=== PATIENT | male | born 1975 | race Two or more races ===

== ENCOUNTER 2021-11-19 17:57 | Inpatient (IN) | payer MEDICAID ==
[~2021-11-19] VITALS: Ht 177.8 cm; Wt 152.1 kg
[2021-11-19] MEDS ORDERED: SODIUM CHLORIDE 0.9% 1,000 ML IV ONE (19:00)
[2021-11-19] MEDS ORDERED: NITROGLYCERIN 0.4 MG SL TAB SL ONE (19:00)
[2021-11-19] MEDS ORDERED: ASPirin 325 MG TAB PO ONE (19:00)
[2021-11-19 19:06] LABS: Hemoglobin 18.3 g/dL (13.5-17.5); Lymphocytes # (auto) 1.7 10 ^3/uL (0.4-5.4); Mean Corpuscular Hgb Conc. 32.7 g/dL (32.0-36.0); Monocytes # (auto) 0.9 10 ^3/uL (0-1.3)
[2021-11-19 19:07] LABS: Basophils # (auto) 0.1 10 ^3/uL (0-0.2); Basophils % (auto) 0.5 % (0.0-2.0); Eosinophils # (auto) 0 10 ^3/uL (0-0.8); Eosinophils % (auto) 0.4 % (0.0-7.0); Hematocrit 55.8 % (41.0-53.0); Lymphocytes % (auto) 13.6 % (10.0-50.0); Mean Corpuscular Hemoglobin 29.2 pg (28.0-32.0); Mean Corpuscular Volume 89.3 fL (80.0-100.0); Monocytes % (auto) 6.7 % (0.0-12.0); Neutrophils # (auto) 10.1 10 ^3/uL (1.6-8.6); Neutrophils % (auto) 78.8 % (37.0-80.0); Nucleated Red Blood Cells % 0.2 %; Red Blood Cells 6.25 10^6/uL (4.5-5.90); Red Cell Distribution Width 13.9 % (11.8-14.3); White Blood Cell 12.8 10^3/uL (4.4-10.8)
[2021-11-19 19:22] LABS: Albumin 3.9 g/dL (3.4-5.0); Calcium 9.4 mg/dL (8.5-10.1); Potassium 4.4 mmol/L (3.5-5.1)
[2021-11-19 19:26] LABS: BUN/Creatinine Ratio 13.2; Bilirubin, Total 0.6 mg/dL (0.2-1.0)
[2021-11-19] MEDS ORDERED: HEPARIN DRIP/D5W 100UNITS/ML 250 ML IV SCH (19:45)
[2021-11-19] MEDS ORDERED: HEPARIN SODIUM (PORCINE) 5000 UNITS/ML 1ML VIAL ONE (20:54)
[2021-11-19 21:12] LABS: INR 1.06 (0.9-1.15); Partial Thromboplastin Time 28.7 sec (24.6-33.4)
[2021-11-19] MEDS: SODIUM CHLOR 0.9% PF (SALINE LOCK) 10ML VIAL/SYR IV SCH (22:02)
[2021-11-20] MEDS ORDERED: ACETAMINOPHEN 325 MG TAB PO PRN (00:30)
[2021-11-20] MEDS ORDERED: NITROGLYCERIN 0.4 MG SL TAB SL PRN (00:30)
[2021-11-20] MEDS ORDERED: DEXTROSE (50%) 50ML SYRG IV PRN (00:30)
[2021-11-20] MEDS ORDERED: MORPHINE SULFATE INJ 2 MG/ml SYRG IV PRN (00:30)
[2021-11-20] MEDS ORDERED: cefTRIAXone 1GM/50ML D5W 50 ML IV ONE (00:30)
[2021-11-20] MEDS: SODIUM CHLORIDE 0.9% 1,000 ML IV SCH ×2 (01:14→08:09)
[2021-11-20] MEDS ORDERED: hydrALAZINE HCL 20 MG/ML VL IV PRN (01:15)
[2021-11-20] MEDS: MORPHINE SULFATE INJ 2 MG/ml SYRG IV PRN ×5 (01:34→16:28)
[2021-11-20] MEDS: ONDANSETRON HCL 4 MG/2 ML VIAL IV PRN ×3 (01:35→16:40)
[2021-11-20 02:53] VITALS: BP 112/60
[2021-11-20 03:24] LABS: Amphetamine Screen, Urine NEGATIVE (NEGATIVE); Barbiturate Scree,Urine NEGATIVE (NEGATIVE); Benzodiazephine Screen, Urine NEGATIVE (NEGATIVE); Cannabinoid Screen, Urine POSITIVE (NEGATIVE); Cocaine Screen, Urine NEGATIVE (NEGATIVE); Opiate Scree,Urine NEGATIVE (NEGATIVE); Phencyclidine Screen, Urine NEGATIVE (NEGATIVE)
[2021-11-20 04:14] LABS: Basophils # (auto) 0.1 10 ^3/uL (0-0.2); Basophils % (auto) 0.8 % (0.0-2.0); Eosinophils # (auto) 0.1 10 ^3/uL (0-0.8); Eosinophils % (auto) 0.9 % (0.0-7.0); Hematocrit 52.3 % (41.0-53.0); Hemoglobin 17.4 g/dL (13.5-17.5); Lymphocytes # (auto) 2.3 10 ^3/uL (0.4-5.4); Lymphocytes % (auto) 21.7 % (10.0-50.0); Mean Corpuscular Hemoglobin 29.6 pg (28.0-32.0); Mean Corpuscular Hgb Conc. 33.2 g/dL (32.0-36.0); Mean Corpuscular Volume 89.4 fL (80.0-100.0); Monocytes # (auto) 0.9 10 ^3/uL (0-1.3); Neutrophils # (auto) 7.4 10 ^3/uL (1.6-8.6); Neutrophils % (auto) 68.6 % (37.0-80.0); Red Blood Cells 5.86 10^6/uL (4.5-5.90); White Blood Cell 10.8 10^3/uL (4.4-10.8)
[2021-11-20 04:34] LABS: INR 1.02 (0.9-1.15); Partial Thromboplastin Time 28.9 sec (24.6-33.4)
[2021-11-20 04:39] LABS: Albumin 3.5 g/dL (3.4-5.0); Calcium 8.6 mg/dL (8.5-10.1)
[2021-11-20 04:50] LABS: Bilirubin, Total 0.6 mg/dL (0.2-1.0); Total Protein 6.9 g/dL (6.4-8.2)
[2021-11-20 04:52] VITALS: BP 112/60
[2021-11-20] MEDS ORDERED: BACL10TA PO (05:03)
[2021-11-20] MEDS ORDERED: LISI20TA28 PO (05:03)
[2021-11-20] MEDS ORDERED: HEPARIN SODIUM (PORCINE) 5000 UNITS/ML 1ML VIAL IV ONE ×3 (05:30→19:30)
[2021-11-20] MEDS: SODIUM CHLOR 0.9% PF (SALINE LOCK) 10ML VIAL/SYR IV SCH ×3 (05:34→21:38)
[2021-11-20] MEDS: InsuLIN REG 1unit/0.01ml Soln (100units/ml) SC SCH ×3 (06:12→11:30)
[2021-11-20] MEDS: ACCU-CHEK COMFORT CURVE STRIP VI SCH ×2 (06:27→11:37)
[2021-11-20] MEDS: ASPirin 81 mg TAB PO SCH (08:56)
[2021-11-20] MEDS: FAMOTIDINE (10MG/ML) 2ML VL IV SCH ×2 (08:56→21:37)
[2021-11-20] MEDS: METOPROLOL TARTRATE 25 MG TAB PO SCH ×2 (08:57→21:42)
[2021-11-20 09:00] VITALS: BP 127/87
[2021-11-20 12:11] LABS: INR 1.03 (0.9-1.15); Partial Thromboplastin Time 29.3 sec (24.6-33.4)
[2021-11-20] MEDS: HEPARIN DRIP/D5W 100UNITS/ML 250 ML IV SCH ×3 (12:38→19:46)
[2021-11-20 13:00] VITALS: BP 119/74
[2021-11-20 17:00] VITALS: BP 129/78
[2021-11-20 19:15] LABS: INR 1.09 (0.9-1.15); Partial Thromboplastin Time 30.2 sec (24.6-33.4)
[2021-11-20] MEDS ORDERED: cefTRIAXone 1GM/50ML D5W 50 ML IV SCH (21:00)
[2021-11-20] MEDS: DOCUSATE SOD 100 MG CAP PO PRN (21:33)
[2021-11-20] MEDS ORDERED: InsuLIN REG 1unit/0.01ml Soln (100units/ml) SC SCH (22:00)
[2021-11-20 22:06] VITALS: BP 138/85
[2021-11-20] MEDS: HYDROcodone-ACET 5/325MG TAB PO PRN (23:15)
[2021-11-21 02:11] LABS: INR 1.08 (0.9-1.15); Partial Thromboplastin Time 32.5 sec (24.6-33.4)
[2021-11-21] MEDS ORDERED: HEPARIN SODIUM (PORCINE) 5000 UNITS/ML 1ML VIAL IV ONE ×2 (02:30→16:54)
[2021-11-21] MEDS: HEPARIN DRIP/D5W 100UNITS/ML 250 ML IV SCH ×3 (02:39→17:42)
[2021-11-21 04:52] VITALS: BP 134/77
[2021-11-21] MEDS: SODIUM CHLOR 0.9% PF (SALINE LOCK) 10ML VIAL/SYR IV SCH ×3 (05:38→21:25)
[2021-11-21 06:08] LABS: Basophils # (auto) 0.1 10 ^3/uL (0-0.2); Basophils % (auto) 0.7 % (0.0-2.0); Eosinophils # (auto) 0.1 10 ^3/uL (0-0.8); Eosinophils % (auto) 1.1 % (0.0-7.0); Hematocrit 48.6 % (41.0-53.0); Hemoglobin 16.4 g/dL (13.5-17.5); Lymphocytes # (auto) 2.8 10 ^3/uL (0.4-5.4); Mean Corpuscular Hgb Conc. 33.7 g/dL (32.0-36.0); Monocytes # (auto) 0.9 10 ^3/uL (0-1.3); Monocytes % (auto) 8.5 % (0.0-12.0); Neutrophils # (auto) 7.1 10 ^3/uL (1.6-8.6); Neutrophils % (auto) 64.7 % (37.0-80.0); Nucleated Red Blood Cells % 0.1 %; Red Blood Cells 5.46 10^6/uL (4.5-5.90); Red Cell Distribution Width 13.8 % (11.8-14.3)
[2021-11-21 06:38] LABS: Potassium 3.8 mmol/L (3.5-5.1)
[2021-11-21 06:58] LABS: Albumin 3.2 g/dL (3.4-5.0); BUN/Creatinine Ratio 12.7; Calcium 8.3 mg/dL (8.5-10.1)
[2021-11-21 09:00] VITALS: BP 133/84
[2021-11-21] MEDS: ASPirin 81 mg TAB PO SCH (09:03)
[2021-11-21] MEDS: METOPROLOL TARTRATE 25 MG TAB PO SCH ×2 (09:03→21:17)
[2021-11-21] MEDS: FAMOTIDINE (10MG/ML) 2ML VL IV SCH ×2 (09:03→21:18)
[2021-11-21] MEDS: DOCUSATE SOD 100 MG CAP PO PRN ×2 (09:34→21:17)
[2021-11-21 09:35] LABS: INR 1.08 (0.9-1.15); Partial Thromboplastin Time 37.6 sec (24.6-33.4)
[2021-11-21 13:00] VITALS: BP 149/91
[2021-11-21] MEDS ORDERED: POLYETHYLENE GLYCOL 17 GM PWDR PO ONE (13:15)
[2021-11-21 16:34] LABS: INR 1.03 (0.9-1.15); Partial Thromboplastin Time 35.9 sec (24.6-33.4)
[2021-11-21 17:00] VITALS: BP 149/95
[2021-11-21] MEDS ORDERED: guaiFENesin-DM 100/10mg/5ml SYR PO ONE (18:00)
[2021-11-21] MEDS: POLYETHYLENE GLYCOL 17 GM PWDR PO PRN (21:17)
[2021-11-21] MEDS: HYDROcodone-ACET 5/325MG TAB PO PRN (21:30)
[2021-11-21 22:00] VITALS: BP_SYST 143; BP_SYST 148; BP_DIAS 91; BP_DIAS 96
[2021-11-21 23:39] LABS: INR 1.08 (0.9-1.15); Partial Thromboplastin Time 37.2 sec (24.6-33.4)
[2021-11-22] VITALS (7 sets, daily range): BP systolic 137–149; BP diastolic 78–109
[2021-11-22] MEDS: SODIUM CHLOR 0.9% PF (SALINE LOCK) 10ML VIAL/SYR IV SCH ×3 (05:28→22:15)
[2021-11-22 05:46] LABS: Basophils # (auto) 0.1 10 ^3/uL (0-0.2); Basophils % (auto) 0.7 % (0.0-2.0); Eosinophils # (auto) 0.2 10 ^3/uL (0-0.8); Eosinophils % (auto) 2.1 % (0.0-7.0); Hematocrit 50.1 % (41.0-53.0); Hemoglobin 16.9 g/dL (13.5-17.5); Lymphocytes # (auto) 2.6 10 ^3/uL (0.4-5.4); Lymphocytes % (auto) 23.7 % (10.0-50.0); Mean Corpuscular Hemoglobin 30.2 pg (28.0-32.0); Mean Corpuscular Hgb Conc. 33.7 g/dL (32.0-36.0); Mean Corpuscular Volume 89.4 fL (80.0-100.0); Monocytes % (auto) 9.5 % (0.0-12.0); Nucleated Red Blood Cells % 0.1 %; Red Blood Cells 5.61 10^6/uL (4.5-5.90); Red Cell Distribution Width 13.9 % (11.8-14.3)
[2021-11-22 05:58] LABS: INR 1.07 (0.9-1.15); Partial Thromboplastin Time 40.2 sec (24.6-33.4)
[2021-11-22 06:03] LABS: Calcium 8.6 mg/dL (8.5-10.1); Potassium 3.9 mmol/L (3.5-5.1)
[2021-11-22 06:05] LABS: BUN/Creatinine Ratio 11.6
[2021-11-22] MEDS: ASPirin 81 mg TAB PO SCH (08:45)
[2021-11-22] MEDS: FAMOTIDINE (10MG/ML) 2ML VL IV SCH ×2 (08:45→22:14)
[2021-11-22] MEDS: METOPROLOL TARTRATE 25 MG TAB PO SCH ×2 (08:45→22:14)
[2021-11-22] MEDS: guaiFENesin-DM 100/10mg/5ml SYR PO PRN ×2 (08:46→20:29)
[2021-11-22] MEDS: DOCUSATE SOD 100 MG CAP PO PRN (10:16)
[2021-11-22] MEDS: POLYETHYLENE GLYCOL 17 GM PWDR PO PRN (10:16)
[2021-11-22 14:10] LABS: INR 1.08 (0.9-1.15); Partial Thromboplastin Time 38.9 sec (24.6-33.4)
[2021-11-22 18:30] LABS: INR 1.07 (0.9-1.15); Partial Thromboplastin Time 39.3 sec (24.6-33.4)
[2021-11-22] MEDS: HEPARIN DRIP/D5W 100UNITS/ML 250 ML IV SCH (20:36)
[2021-11-22] MEDS: MORPHINE SULFATE INJ 2 MG/ml SYRG IV PRN (23:08)
[2021-11-23 02:07] LABS: Basophils # (auto) 0.1 10 ^3/uL (0-0.2); Basophils % (auto) 1.3 % (0.0-2.0); Eosinophils # (auto) 0.1 10 ^3/uL (0-0.8); Eosinophils % (auto) 1.4 % (0.0-7.0); Hematocrit 47.8 % (41.0-53.0); Hemoglobin 16.6 g/dL (13.5-17.5); Lymphocytes # (auto) 1.8 10 ^3/uL (0.4-5.4); Lymphocytes % (auto) 17.3 % (10.0-50.0); Mean Corpuscular Hemoglobin 30.9 pg (28.0-32.0); Mean Corpuscular Hgb Conc. 34.6 g/dL (32.0-36.0); Mean Corpuscular Volume 89.1 fL (80.0-100.0); Monocytes # (auto) 0.9 10 ^3/uL (0-1.3); Monocytes % (auto) 8.6 % (0.0-12.0); Neutrophils # (auto) 7.5 10 ^3/uL (1.6-8.6); Neutrophils % (auto) 71.4 % (37.0-80.0); Nucleated Red Blood Cells % 0.5 %; Red Blood Cells 5.36 10^6/uL (4.5-5.90); Red Cell Distribution Width 13.8 % (11.8-14.3); White Blood Cell 10.6 10^3/uL (4.4-10.8)
[2021-11-23 02:24] LABS: INR 1.08 (0.9-1.15); Partial Thromboplastin Time 29.1 sec (24.6-33.4)
[2021-11-23 02:25] LABS: BUN/Creatinine Ratio 11.1; Calcium 8.6 mg/dL (8.5-10.1); Potassium 3.9 mmol/L (3.5-5.1)
[2021-11-23 05:00] VITALS: BP 136/98
[2021-11-23 05:14] LABS: Urine Bacteria NONE SEEN /hpf (None Seen); Urine Blood Negative /uL (Negative); Urine Mucus FEW (None Seen); Urine Specific Gravity 1.023 (1.001-1.035); Urine WBC 1 /hpf (0 - 3)
[2021-11-23] MEDS: SODIUM CHLOR 0.9% PF (SALINE LOCK) 10ML VIAL/SYR IV SCH ×3 (05:19→23:55)
[2021-11-23] MEDS: ASPirin 81 mg TAB PO SCH (08:57)
[2021-11-23] MEDS: METOPROLOL TARTRATE 25 MG TAB PO SCH ×2 (08:57→21:52)
[2021-11-23] MEDS: FAMOTIDINE (10MG/ML) 2ML VL IV SCH ×2 (08:57→21:49)
[2021-11-23 09:00] VITALS: BP 145/92
[2021-11-23 13:00] VITALS: BP 145/87
[2021-11-23] MEDS: guaiFENesin-DM 100/10mg/5ml SYR PO PRN (16:03)
[2021-11-23 17:00] VITALS: BP 149/87
[2021-11-23] MEDS ORDERED: HEPARIN IN NS 1000Units/500mL 1,500 ML ONE (17:41)
[2021-11-23] MEDS ORDERED: LIDOCAINE 2%HCL (LOCAL ANESTH.) INJ 10ml MDV ONE (17:41)
[2021-11-23] MEDS ORDERED: IOHEXOL 350 MG/ML 100ML IJ ONE ×2 (17:41→18:30)
[2021-11-23] MEDS ORDERED: ANGIOMAX 250 MG VIAL IV ONE (17:53)
[2021-11-23] MEDS ORDERED: fentaNYL CITRATE 100 MCG/2 ML VL ONE (17:53)
[2021-11-23] MEDS ORDERED: SODIUM CHL 0.9% 50 ML ONE (17:54)
[2021-11-23] MEDS ORDERED: MIDAZOLAM HCL 2MG/2ML 2ml VIAL (1mg/ml) ONE (17:54)
[2021-11-23] MEDS ORDERED: DEXTROSE (50%) 50ML SYRG IV PRN (18:45)
[2021-11-23] MEDS ORDERED: TICAGRELOR 90 MG TAB ONE (18:51)
[2021-11-23] MEDS: ONDANSETRON HCL 4 MG/2 ML VIAL IV PRN (21:49)
[2021-11-23] MEDS: MORPHINE SULFATE INJ 2 MG/ml SYRG IV PRN (21:53)
[2021-11-23 22:00] VITALS: BP 169/107
[2021-11-23] MEDS: ACCU-CHEK COMFORT CURVE STRIP VI SCH (22:00)
[2021-11-23] MEDS ORDERED: DexAMETHasone SOD PHOS 10MG/1ML VIAL INJ IV ONE (23:15)
[2021-11-23] MEDS ORDERED: cefTRIAXone 1GM/50ML D5W 50 ML IV ONE (23:15)
[2021-11-23] MEDS ORDERED: AZITHROMYCIN 500MG/ 250ML 250 ML IV ONE (23:15)
[2021-11-23] MEDS ORDERED: ALPRAZolam 0.25 MG TAB PO PRN (23:45)
[2021-11-23] MEDS: InsuLIN REG 1unit/0.01ml Soln (100units/ml) SC SCH (23:55)
[2021-11-24] MEDS: guaiFENesin-DM 100/10mg/5ml SYR PO PRN ×2 (00:16→16:32)
[2021-11-24 00:48] VITALS: BP 158/101
[2021-11-24] MEDS: ALBUTEROL SULF 2.5 MG/0.5ML(0.5%) NEB SOLN NEB PRN ×3 (01:58→15:21)
[2021-11-24] MEDS: MORPHINE SULFATE INJ 2 MG/ml SYRG IV PRN ×2 (03:58→10:31)
[2021-11-24] MEDS: ONDANSETRON HCL 4 MG/2 ML VIAL IV PRN ×2 (04:11→10:30)
[2021-11-24 05:00] VITALS: BP 139/96
[2021-11-24 05:44] LABS: Basophils # (auto) 0 10 ^3/uL (0-0.2); Basophils % (auto) 0.5 % (0.0-2.0); Eosinophils # (auto) 0 10 ^3/uL (0-0.8); Hematocrit 49.6 % (41.0-53.0); Hemoglobin 16.7 g/dL (13.5-17.5); Lymphocytes # (auto) 0.4 10 ^3/uL (0.4-5.4); Lymphocytes % (auto) 5.6 % (10.0-50.0); Mean Corpuscular Hgb Conc. 33.7 g/dL (32.0-36.0); Monocytes # (auto) 0.6 10 ^3/uL (0-1.3); Monocytes % (auto) 7.3 % (0.0-12.0); Neutrophils # (auto) 6.9 10 ^3/uL (1.6-8.6); Neutrophils % (auto) 86.6 % (37.0-80.0); Nucleated Red Blood Cells % 0.1 %; Red Blood Cells 5.57 10^6/uL (4.5-5.90); Red Cell Distribution Width 13.8 % (11.8-14.3)
[2021-11-24 06:03] LABS: BUN/Creatinine Ratio 8.8; Calcium 8.3 mg/dL (8.5-10.1); Potassium 4.5 mmol/L (3.5-5.1)
[2021-11-24] MEDS: ACCU-CHEK COMFORT CURVE STRIP VI SCH (06:53)
[2021-11-24] MEDS: InsuLIN REG 1unit/0.01ml Soln (100units/ml) SC SCH (06:55)
[2021-11-24] MEDS: SODIUM CHLOR 0.9% PF (SALINE LOCK) 10ML VIAL/SYR IV SCH ×2 (06:56→14:00)
[2021-11-24] MEDS: TICAGRELOR 90 MG TAB PO SCH ×2 (06:56→16:32)
[2021-11-24 08:56] VITALS: BP 140/77
[2021-11-24] MEDS: METOPROLOL TARTRATE 25 MG TAB PO SCH (10:30)
[2021-11-24] MEDS: ASPirin 81 mg TAB PO SCH (10:30)
[2021-11-24] MEDS: FAMOTIDINE (10MG/ML) 2ML VL IV SCH (10:30)
[2021-11-24] MEDS ORDERED: DAPA1TAB4 PO (11:07)
[2021-11-24] MEDS ORDERED: TICA90TA PO (11:07)
[2021-11-24] MEDS ORDERED: ALPR0.255 PO (11:07)
[2021-11-24] MEDS ORDERED: ASPI-325 PO (11:07)
[2021-11-24] MEDS ORDERED: MET25T PO (11:07)
[2021-11-24] MEDS ORDERED: AZIT500T66 PO (11:08)
[2021-11-24 12:20] VITALS: BP 142/72
[2021-11-24 13:00] VITALS: BP 100/60
[2021-11-24] MEDS: HYDROcodone-ACET 5/325MG TAB PO PRN (15:01)
[2021-11-24 17:20] VITALS: BP 130/77
[2021-11-24] MEDS ORDERED: cefTRIAXone 1GM/50ML D5W 50 ML IV SCH (21:00)
[2021-11-24] MEDS ORDERED: DexAMETHasone SOD PHOS 10MG/1ML VIAL INJ IV SCH (22:00)
[2021-11-24] MEDS ORDERED: AZITHROMYCIN 500MG/ 250ML 250 ML IV SCH (22:00)
== END 2021-11-24 17:55 | disposition home or self-care (01) | DRG 174 ==
LOC: ER 17:57 → TELE-WESTW 11-20 00:17
PROVIDERS: ADMIT Nurse Practitioner Family; ATTEND Internal Medicine Pulmonary Disease
PROC: 027135Z Dilation of Coronary Artery, Two Arteries with Two Drug-eluting Intraluminal Devices, Percutaneous Approach (ICD-10-PCS; principal; 2021-11-23)
PROC: 02703ZZ Dilation of Coronary Artery, One Artery, Percutaneous Approach (ICD-10-PCS; 2021-11-23)
PROC: 4A023N7 Measurement of Cardiac Sampling and Pressure, Left Heart, Percutaneous Approach (ICD-10-PCS; 2021-11-23)
PROC: B2111ZZ Fluoroscopy of Multiple Coronary Arteries using Low Osmolar Contrast (ICD-10-PCS; 2021-11-23)
PROC: 5A09357 Assistance with Respiratory Ventilation, Less than 24 Consecutive Hours, Continuous Positive Airway Pressure (ICD-10-PCS; 2021-11-24)
DX: I21.4 Non-ST elevation (NSTEMI) myocardial infarction (principal); J12.82 Pneumonia due to coronavirus disease 2019; E87.1 Hypo-osmolality and hyponatremia; U07.1 COVID-19; G47.30 Sleep apnea, unspecified; I10 Essential (primary) hypertension; E11.65 Type 2 diabetes mellitus with hyperglycemia; E66.01 Morbid (severe) obesity due to excess calories; Z68.42 Body mass index [BMI] 45.0-49.9, adult; Z91.19 Patient's noncompliance with other medical treatment and regimen
CPT/HCPCS: 36415; 71045; 71046; 80048; 80053; 80307; 81001; 82962; 83036; 83735; 83880; 84484; 85025; 85379; 85610; 85730; 86850; 86900; 86901; 93005; 93306; 94640; 94660; 96361; 96365; 96367; 99152; 99153; 99291; C1874; C1887; G0378; J0696; J1100; J1815; J2001; J2250; J2405; J3490

== ENCOUNTER 2021-11-26 04:38 | Inpatient (IN) | payer MEDICAID ==
[~2021-11-26] VITALS: Ht 177.8 cm; Wt 175.0 kg
[~2021-11-26 04:38] MED LIST: ALPR0.255 PO; ASPI-325 PO; AZIT500T66 PO; BACL10TA PO; DAPA1TAB4 PO; LISI20TA28 PO; MET25T PO; TICA90TA PO
[2021-11-26] MEDS ORDERED: ONDANSETRON HCL 4 MG/2 ML VIAL IV ONE (05:45)
[2021-11-26] MEDS ORDERED: MORPHINE SULFATE INJ 2 MG/ml SYRG IV ONE (06:30)
[2021-11-26] MEDS ORDERED: cefTRIAXone 1GM/50ML D5W 50 ML IV ONE (06:45)
[2021-11-26] MEDS ORDERED: methylPREDNISolone SOD SUCC 125 MG/2 ML VL IV ONE (06:45)
[2021-11-26] MEDS ORDERED: AZITHROMYCIN 500MG/ 250ML 250 ML IV ONE (06:45)
[2021-11-26 07:14] LABS: Basophils # (auto) 0 10 ^3/uL (0-0.2); Basophils % (auto) 0.4 % (0.0-2.0); Eosinophils # (auto) 0 10 ^3/uL (0-0.8); Eosinophils % (auto) 0.5 % (0.0-7.0); Hematocrit 49.3 % (41.0-53.0); Hemoglobin 16.5 g/dL (13.5-17.5); Lymphocytes # (auto) 0.8 10 ^3/uL (0.4-5.4); Lymphocytes % (auto) 11.1 % (10.0-50.0); Mean Corpuscular Hemoglobin 29.4 pg (28.0-32.0); Mean Corpuscular Hgb Conc. 33.5 g/dL (32.0-36.0); Mean Corpuscular Volume 87.8 fL (80.0-100.0); Monocytes % (auto) 12.9 % (0.0-12.0); Neutrophils # (auto) 5.6 10 ^3/uL (1.6-8.6); Neutrophils % (auto) 75.1 % (37.0-80.0); Nucleated Red Blood Cells % 0.2 %; Red Blood Cells 5.62 10^6/uL (4.5-5.90); Red Cell Distribution Width 13.7 % (11.8-14.3); White Blood Cell 7.4 10^3/uL (4.4-10.8)
[2021-11-26 07:29] LABS: INR 1.08 (0.9-1.15); Partial Thromboplastin Time 32.1 sec (24.6-33.4)
[2021-11-26 07:37] LABS: Albumin 3.5 g/dL (3.4-5.0); BUN/Creatinine Ratio 12.7; Potassium 3.9 mmol/L (3.5-5.1)
[2021-11-26 07:40] LABS: Bilirubin, Total 0.9 mg/dL (0.2-1.0); Total Protein 7.6 g/dL (6.4-8.2)
[2021-11-26] MEDS ORDERED: IOHEXOL 350 MG/ML 100ML IJ ONE (09:06)
[2021-11-26 09:26] LABS: Urine Bacteria NONE SEEN /hpf (None Seen); Urine Blood TRACE /uL (Negative); Urine Specific Gravity 1.028 (1.001-1.035); Urine WBC 1 /hpf (0 - 3)
[2021-11-26] MEDS ORDERED: NITROGLYCERIN 0.4 MG SL TAB SL PRN (10:30)
[2021-11-26] MEDS ORDERED: DEXTROSE (50%) 50ML SYRG IV PRN (10:45)
[2021-11-26] MEDS: TICAGRELOR 90 MG TAB PO SCH (11:00)
[2021-11-26] MEDS ORDERED: hydrALAZINE HCL 20 MG/ML VL IV PRN (11:00)
[2021-11-26] MEDS: SODIUM CHLORIDE 0.9% 1,000 ML IV SCH (11:00)
[2021-11-26] MEDS: ACCU-CHEK COMFORT CURVE STRIP VI SCH ×2 (11:30→17:00)
[2021-11-26] MEDS: InsuLIN REG 1unit/0.01ml Soln (100units/ml) SC SCH ×2 (11:30→17:00)
[2021-11-26 11:58] LABS: CRP High Sensitivity 5.98 mg/dL (< 0.3)
[2021-11-26 12:04] LABS: Thyroid Stimulating Hormone 3.19 uIU/mL (0.358-3.74)
[2021-11-26 12:09] VITALS: BP 113/62
[2021-11-26] MEDS ORDERED: ONDANSETRON ODT 4 MG TAB PO PRN (13:40)
[2021-11-26] MEDS ORDERED: ONDANSETRON HCL 4 MG/2 ML VIAL IV PRN (13:55)
[2021-11-26 14:31] VITALS: BP 125/83
[2021-11-26 15:33] VITALS: BP 125/83
[2021-11-26] MEDS: ACETAMINOPHEN 500 MG TAB PO PRN (15:38)
[2021-11-26 19:51] VITALS: BP_SYST 125; BP_SYST 128; BP_DIAS 78; BP_DIAS 83
[2021-11-26 21:25] VITALS: BP 125/83
[2021-11-26 22:00] VITALS: BP 128/78
[2021-11-26] MEDS ORDERED: ENOXAPARIN SOD 40 MG/0.4 ML SYRINGE SC SCH (22:00)
[2021-11-26] MEDS: BUDESONIDE (INHALATION) 180 MCG IH IN SCH (22:56)
[2021-11-26] MEDS: MORPHINE SULFATE INJ 2 MG/ml SYRG IV PRN (23:59)
[2021-11-27] MEDS: SODIUM CHLORIDE 0.9% 1,000 ML IV SCH ×2 (00:20→13:40)
[2021-11-27] MEDS: InsuLIN REG 1unit/0.01ml Soln (100units/ml) SC SCH ×5 (00:58→22:00)
[2021-11-27] MEDS: TICAGRELOR 90 MG TAB PO SCH ×3 (00:58→22:20)
[2021-11-27] MEDS: ACCU-CHEK COMFORT CURVE STRIP VI SCH ×6 (00:58→22:00)
[2021-11-27 05:00] VITALS: BP 129/75
[2021-11-27 05:52] LABS: Basophils # (auto) 0 10 ^3/uL (0-0.2); Basophils % (auto) 0.4 % (0.0-2.0); Eosinophils # (auto) 0 10 ^3/uL (0-0.8); Eosinophils % (auto) 0.4 % (0.0-7.0); Hemoglobin 16.5 g/dL (13.5-17.5); Lymphocytes # (auto) 1.5 10 ^3/uL (0.4-5.4); Lymphocytes % (auto) 19.9 % (10.0-50.0); Mean Corpuscular Hemoglobin 30.7 pg (28.0-32.0); Mean Corpuscular Hgb Conc. 34.5 g/dL (32.0-36.0); Mean Corpuscular Volume 89.1 fL (80.0-100.0); Monocytes % (auto) 12.5 % (0.0-12.0); Neutrophils # (auto) 5.2 10 ^3/uL (1.6-8.6); Neutrophils % (auto) 66.8 % (37.0-80.0); Nucleated Red Blood Cells % 0.1 %; Red Blood Cells 5.39 10^6/uL (4.5-5.90); Red Cell Distribution Width 13.8 % (11.8-14.3); White Blood Cell 7.7 10^3/uL (4.4-10.8)
[2021-11-27 06:09] LABS: Calcium 8.8 mg/dL (8.5-10.1); Potassium 4.2 mmol/L (3.5-5.1)
[2021-11-27 06:12] LABS: Albumin 3.1 g/dL (3.4-5.0)
[2021-11-27 06:15] LABS: Bilirubin, Total 0.7 mg/dL (0.2-1.0); Total Protein 7.1 g/dL (6.4-8.2)
[2021-11-27] MEDS: BUDESONIDE (INHALATION) 180 MCG IH IN SCH ×2 (08:52→19:40)
[2021-11-27 09:00] VITALS: BP 104/65
[2021-11-27] MEDS ORDERED: ALBUTEROL SULF 2.5 MG/0.5ML(0.5%) NEB SOLN NEB PRN (09:00)
[2021-11-27] MEDS: MORPHINE SULFATE INJ 2 MG/ml SYRG IV PRN (09:05)
[2021-11-27] MEDS: ALBUTEROL SULF HFA 90MCG INH 200DOSE IN PRN ×2 (09:08→19:40)
[2021-11-27] MEDS: ZINC SULFATE 220mg CAP or TAB PO SCH (09:51)
[2021-11-27] MEDS: DexAMETHasone SOD PHOS 10MG/1ML VIAL INJ IV SCH (09:51)
[2021-11-27] MEDS: ASCORBIC ACID 1,000 MG TAB PO SCH (09:52)
[2021-11-27] MEDS: CHOLECALCIFEROL (VITD3) 2,000 UNIT CAP/TAB PO SCH (09:53)
[2021-11-27] MEDS: AZITHROMYCIN 500MG/ 250ML 250 ML IV SCH (09:53)
[2021-11-27] MEDS ORDERED: REMDESIVIR PER PHARMACY 0 ML IV SCH (12:45)
[2021-11-27 13:00] VITALS: BP 115/61
[2021-11-27 17:00] VITALS: BP 113/87
[2021-11-27 22:00] VITALS: BP 131/85
[2021-11-27] MEDS: guaiFENesin-DM 100/10mg/5ml SYR PO PRN (22:21)
[2021-11-28] MEDS: SODIUM CHLORIDE 0.9% 1,000 ML IV SCH ×3 (03:00→16:36)
[2021-11-28 05:15] VITALS: BP 135/73
[2021-11-28 05:57] LABS: Albumin 3.4 g/dL (3.4-5.0); BUN/Creatinine Ratio 18.2; Calcium 8.6 mg/dL (8.5-10.1)
[2021-11-28 06:00] LABS: Bilirubin, Total 0.7 mg/dL (0.2-1.0); Total Protein 7.4 g/dL (6.4-8.2)
[2021-11-28 06:16] LABS: INR 1.06 (0.9-1.15); Partial Thromboplastin Time 30.7 sec (24.6-33.4)
[2021-11-28] MEDS: guaiFENesin-DM 100/10mg/5ml SYR PO PRN (06:29)
[2021-11-28] MEDS: ACCU-CHEK COMFORT CURVE STRIP VI SCH ×4 (07:00→21:56)
[2021-11-28] MEDS: InsuLIN REG 1unit/0.01ml Soln (100units/ml) SC SCH ×4 (07:00→21:56)
[2021-11-28] MEDS: AZITHROMYCIN 500MG/ 250ML 250 ML IV SCH (08:56)
[2021-11-28] MEDS: ENOXAPARIN SOD 40 MG/0.4 ML SYRINGE SC SCH (08:56)
[2021-11-28] MEDS: DexAMETHasone SOD PHOS 10MG/1ML VIAL INJ IV SCH (08:56)
[2021-11-28] MEDS: CHOLECALCIFEROL (VITD3) 2,000 UNIT CAP/TAB PO SCH (08:57)
[2021-11-28] MEDS: LISINOPRIL 20 MG TAB PO SCH (08:59)
[2021-11-28 09:00] VITALS: BP 113/65
[2021-11-28] MEDS: ASCORBIC ACID 1,000 MG TAB PO SCH (09:00)
[2021-11-28] MEDS: ASPirin-EC 81 mg tab PO SCH (09:01)
[2021-11-28] MEDS: ZINC SULFATE 220mg CAP or TAB PO SCH (09:01)
[2021-11-28] MEDS: BUDESONIDE (INHALATION) 180 MCG IH IN SCH ×2 (10:16→19:16)
[2021-11-28] MEDS: ALBUTEROL SULF HFA 90MCG INH 200DOSE IN PRN ×2 (10:16→19:16)
[2021-11-28] MEDS: TICAGRELOR 90 MG TAB PO SCH ×2 (12:35→21:57)
[2021-11-28 22:00] VITALS: BP_SYST 113; BP_SYST 126; BP_DIAS 65; BP_DIAS 70
[2021-11-29 00:40] VITALS: BP 126/70
[2021-11-29 05:00] VITALS: BP 111/73
[2021-11-29] MEDS: SODIUM CHLORIDE 0.9% 1,000 ML IV SCH (05:40)
[2021-11-29] MEDS: InsuLIN REG 1unit/0.01ml Soln (100units/ml) SC SCH ×2 (07:00→11:30)
[2021-11-29] MEDS: ACCU-CHEK COMFORT CURVE STRIP VI SCH ×2 (07:00→11:30)
[2021-11-29] MEDS: ENOXAPARIN SOD 40 MG/0.4 ML SYRINGE SC SCH (08:03)
[2021-11-29] MEDS: DexAMETHasone SOD PHOS 10MG/1ML VIAL INJ IV SCH (08:03)
[2021-11-29] MEDS: AZITHROMYCIN 500MG/ 250ML 250 ML IV SCH (08:03)
[2021-11-29] MEDS: ASPirin-EC 81 mg tab PO SCH (08:04)
[2021-11-29] MEDS: CHOLECALCIFEROL (VITD3) 2,000 UNIT CAP/TAB PO SCH (08:04)
[2021-11-29] MEDS: LISINOPRIL 20 MG TAB PO SCH (08:05)
[2021-11-29] MEDS: ZINC SULFATE 220mg CAP or TAB PO SCH (08:06)
[2021-11-29] MEDS: ASCORBIC ACID 1,000 MG TAB PO SCH (08:06)
[2021-11-29 09:00] VITALS: BP 115/63
[2021-11-29] MEDS: TICAGRELOR 90 MG TAB PO SCH (11:07)
[2021-11-29] MEDS: ACETAMINOPHEN 500 MG TAB PO PRN (11:07)
[2021-11-29] MEDS: BUDESONIDE (INHALATION) 180 MCG IH IN SCH (11:08)
[2021-11-29] MEDS ORDERED: FAMO-161 PO (12:04)
[2021-11-29] MEDS ORDERED: DEXA6TAB6 PO (12:04)
[2021-11-29 12:45] VITALS: BP 100/63
[2021-11-29 14:33] VITALS: BP 115/63
== END 2021-11-29 14:15 | disposition home or self-care (01) | DRG 137 ==
LOC: ER 04:38 → TELE 10:37 → TELE-EAST 12:15
PROVIDERS: ADMIT Registered Nurse; ATTEND Hospitalist
PROC: 5A09357 Assistance with Respiratory Ventilation, Less than 24 Consecutive Hours, Continuous Positive Airway Pressure (ICD-10-PCS; principal; 2021-11-26)
PROC: 5A09357 Assistance with Respiratory Ventilation, Less than 24 Consecutive Hours, Continuous Positive Airway Pressure (ICD-10-PCS; 2021-11-28)
DX: U07.1 COVID-19 (principal); J96.01 Acute respiratory failure with hypoxia; J12.82 Pneumonia due to coronavirus disease 2019; I21.4 Non-ST elevation (NSTEMI) myocardial infarction; E11.65 Type 2 diabetes mellitus with hyperglycemia; J98.11 Atelectasis; E66.01 Morbid (severe) obesity due to excess calories; R80.9 Proteinuria, unspecified; R31.9 Hematuria, unspecified; R82.4 Acetonuria; I10 Essential (primary) hypertension; R79.89 Other specified abnormal findings of blood chemistry; R81 Glycosuria; I25.10 Atherosclerotic heart disease of native coronary artery without angina pectoris; Z95.5 Presence of coronary angioplasty implant and graft; Z79.899 Other long term (current) drug therapy; Z68.43 Body mass index [BMI] 50.0-59.9, adult
CPT/HCPCS: 36415; 71045; 71275; 80053; 81001; 82306; 82728; 82962; 83605; 83615; 83735; 83880; 84443; 84484; 85025; 85379; 85610; 85730; 86141; 87040; 93005; 93971; 94640; 94660; 96365; 96367; 96375; 99291; G0378; J0696; J1100; J1815; J2405

== ENCOUNTER 2022-01-28 07:01 | Day surgery (SDC) | payer MEDICAID ==
[2022-01-28] VITALS (7 sets, daily range): BP systolic 121–142; BP diastolic 72–93
[~2022-01-28] VITALS: Ht 177.8 cm; Wt 141.5 kg
[~2022-01-28 07:01] MED LIST changes: -ALPR0.255 PO; -AZIT500T66 PO; +DULO20CA PO; +FAMO-161 PO
[2022-01-28] MEDS ORDERED: fentaNYL CITRATE 100 MCG/2 ML VL ONE (07:55)
[2022-01-28] MEDS ORDERED: MIDAZOLAM HCL 2MG/2ML 2ml VIAL (1mg/ml) ONE (07:56)
[2022-01-28] MEDS ORDERED: HEPARIN SODIUM (PORCINE) 5000 UNITS/ML 1ML VIAL ONE (08:00)
[2022-01-28] MEDS ORDERED: ANGIOMAX 250 MG VIAL IV ONE (08:00)
[2022-01-28] MEDS ORDERED: VERAPAMIL 2.5MG/ML INJ 2ML VIAL IV ONE (08:00)
[2022-01-28] MEDS ORDERED: IODIXANOL 320MG/ML 100ML BTL IV ONE (08:01)
[2022-01-28] MEDS ORDERED: SODIUM CHL 0.9% 50 ML ONE (08:01)
[2022-01-28] MEDS ORDERED: ASPirin 325 MG TAB ONE (08:43)
[2022-01-28] MEDS ORDERED: TICAGRELOR 90 MG TAB ONE ×2 (08:43→08:46)
== END 2022-01-28 11:07 | disposition home or self-care (01) ==
LOC: CATH 07:01
PROVIDERS: ATTEND Internal Medicine Cardiovascular Disease
DX: R07.9 Chest pain, unspecified (principal); I25.10 Atherosclerotic heart disease of native coronary artery without angina pectoris; I10 Essential (primary) hypertension; E11.9 Type 2 diabetes mellitus without complications; G47.33 Obstructive sleep apnea (adult) (pediatric); Z20.822 Contact with and (suspected) exposure to COVID-19
CPT/HCPCS: 93458; C1725; C1769; C1874; C1887; C1894; C9600; J0583; J1644; J2250; J3010; Q9967; U0003; 99152; 99153

== ENCOUNTER 2023-01-25 03:58 | Inpatient (IN) | payer MEDICAID ==
[~2023-01-25] VITALS: Ht 177.8 cm; Wt 152.0 kg
[~2023-01-25 03:58] MED LIST changes: -LISI20TA28 PO; +LISI20TA56 PO
[2023-01-25 04:48] LABS: Basophils # (auto) 0.1 10 ^3/uL (0-0.2); Basophils % (auto) 0.8 % (0.0-2.0); Eosinophils # (auto) 0.1 10 ^3/uL (0-0.8); Eosinophils % (auto) 0.7 % (0.0-7.0); Hematocrit 47.3 % (41.0-53.0); Hemoglobin 15.8 g/dL (13.5-17.5); Lymphocytes # (auto) 1.2 10 ^3/uL (0.4-5.4); Lymphocytes % (auto) 13.3 % (10.0-50.0); Mean Corpuscular Hemoglobin 28.7 pg (28.0-32.0); Mean Corpuscular Hgb Conc. 33.4 g/dL (32.0-36.0); Mean Corpuscular Volume 86.2 fL (80.0-100.0); Monocytes # (auto) 1.1 10 ^3/uL (0-1.3); Monocytes % (auto) 12.1 % (0.0-12.0); Neutrophils # (auto) 6.4 10 ^3/uL (1.6-8.6); Neutrophils % (auto) 73.1 % (37.0-80.0); Nucleated Red Blood Cells % 0.1 %; Red Blood Cells 5.49 10^6/uL (4.5-5.90); Red Cell Distribution Width 15.1 % (11.8-14.3); White Blood Cell 8.8 10^3/uL (4.4-10.8)
[2023-01-25 05:05] LABS: Alanine Aminotransferase 22 U/L (7-40); Albumin 4.6 g/dL (3.2-4.8); Alkaline Phosphatase 43 U/L (46-116); Anion Gap 6.5 (5-15); Aspartate Aminotransferase 18 U/L (13-40); Blood Urea Nitrogen 7 mg/dL (9-23); Calcium 9.1 mg/dL (8.7-10.4); Carbon Dioxide 27.5 mmol/L (20-30); Chloride 103 mmol/L (98-107); Glucose 152 mg/dL (74-106); Magnesium 1.4 mg/dL (1.6-2.6); Potassium 3.9 mmol/L (3.5-5.1); Sodium 137 mmol/L (136-145)
[2023-01-25 05:06] LABS: Bilirubin, Total 0.6 mg/dL (0.2-1.0); Total Protein 7.3 g/dL (5.7-8.2)
[2023-01-25] MEDS ORDERED: ENOXAPARIN SOD 100 MG/1 ML SYRINGE SC ONE (05:45)
[2023-01-25] MEDS ORDERED: METOPROLOL TARTRATE 1MG/1ML-5ML VIAL IV ONE (05:45)
[2023-01-25] MEDS ORDERED: FUROSEMIDE 20 MG/2 ML VIAL IV ONE (05:45)
[2023-01-25] MEDS ORDERED: ATORVASTATIN 20 MG TAB PO ONE ×2 (05:45→11:30)
[2023-01-25] MEDS ORDERED: ASPirin 325 MG TAB PO ONE (05:45)
[2023-01-25] MEDS ORDERED: DexAMETHasone SOD PHOS 10MG/1ML VIAL INJ IV ONE (06:00)
[2023-01-25] MEDS ORDERED: LACTATED RINGER'S 1,000 ML IV ONE (06:00)
[2023-01-25] MEDS ORDERED: IOHEXOL 350 MG/ML 100ML IJ ONE (06:05)
[2023-01-25 06:20] VITALS: PULSE 102; RESP 20; O2SAT 95
[2023-01-25 06:54] LABS: COVID19 ANTIGEN SOFIA FIA POSITIVE (NEGATIVE)
[2023-01-25 08:14] VITALS: PULSE 102; RESP 32; O2SAT 94
[2023-01-25 08:38] LABS: Urine Bacteria NONE SEEN /hpf (None Seen); Urine Blood Negative /uL (Negative); Urine Clarity Clear (Clear); Urine Protein, UAD Negative (Negative); Urine Specific Gravity 1.008 (1.001-1.035); Urine Urobilinogen Normal (Negative); Urine WBC <1 /hpf (0 - 3)
[2023-01-25 08:40] LABS: Urine Color Straw (Yellow)
[2023-01-25] MEDS ORDERED: ACETAMINOPHEN 325 MG TAB PO ONE (09:00)
[2023-01-25 09:10] LABS: INR 1.07 (0.9-1.15); Prothrombin Time 11.2 sec (9.3-11.8)
[2023-01-25 09:35] VITALS: PULSE 102; O2SAT 95
[2023-01-25 09:54] VITALS: BP 112/78; PULSE 102; RESP 22; TEMP 98.6; O2SAT 95
[2023-01-25] MEDS ORDERED: NITROGLYCERIN 0.4 MG SL TAB SL PRN (11:15)
[2023-01-25] MEDS ORDERED: MORPHINE SULFATE INJ 2 MG/ml SYRG IV PRN (11:15)
[2023-01-25] MEDS ORDERED: DexAMETHasone 4 MG TAB PO ONE (11:30)
[2023-01-25] MEDS ORDERED: AZITHROMYCIN 500MG/ 250ML 250 ML IV ONE (11:30)
[2023-01-25] MEDS ORDERED: MAGNESIUM SULFATE 1GM/100ML 100 ML IV ONE (11:30)
[2023-01-25] MEDS ORDERED: REMDESIVIR PER PHARMACY 0 ML IV SCH (11:30)
[2023-01-25] MEDS ORDERED: ENOXAPARIN SOD 40 MG/0.4 ML SYRINGE SC ONE (11:30)
[2023-01-25] MEDS ORDERED: cefTRIAXone 1GM/50ML D5W 50 ML IV ONE (11:30)
[2023-01-25] MEDS ORDERED: PANTOPRAZOLE 40 MG TAB PO ONE (12:15)
[2023-01-25] MEDS ORDERED: ASCORBIC ACID 500 MG TAB PO ONE (12:15)
[2023-01-25] MEDS ORDERED: LISINOPRIL 20 MG TAB PO ONE (12:15)
[2023-01-25] MEDS ORDERED: DULoxetine HCL 30 MG CAP PO ONE (12:15)
[2023-01-25] MEDS ORDERED: METOPROLOL SUCCINATE XL 50 MG TAB PO ONE (12:15)
[2023-01-25] MEDS ORDERED: ZINC SULFATE 220mg CAP or TAB PO ONE (12:15)
[2023-01-25] MEDS ORDERED: DEXTROSE (50%) 50ML SYRG IV PRN (12:15)
[2023-01-25 13:01] LABS: INR 1.1 (0.9-1.15); Partial Thromboplastin Time 35.9 SEC (24.5-34.5); Prothrombin Time 11.5 sec (9.3-11.8)
[2023-01-25 13:31] LABS: Erythrocyte Sedimentation Rate 3 mm/hr (0-20)
[2023-01-25] MEDS: ASCORBIC ACID 500 MG TAB PO SCH ×2 (14:00→21:48)
[2023-01-25] MEDS ORDERED: REMDESIVIR 200 MG in NS 210ml LOADING DOSE ADULT IV ONE (15:00)
[2023-01-25] MEDS: InsuLIN REG 1unit/0.01ml Soln (100units/ml) SC SCH ×2 (17:15→21:50)
[2023-01-25] MEDS: ACCU-CHEK COMFORT CURVE STRIP VI SCH ×2 (17:16→21:49)
[2023-01-25] MEDS: ENOXAPARIN SOD 150 MG/1 ML SYRINGE SC SCH (18:01)
[2023-01-25 19:18] LABS: Amphetamine Screen, Urine Neg (NEGATIVE); Barbiturate Scree,Urine Neg (NEGATIVE); Benzodiazephine Screen, Urine Neg (NEGATIVE); Cannabinoid Screen, Urine Pos (NEGATIVE); Cocaine Screen, Urine Neg (NEGATIVE); Opiate Scree,Urine Neg (NEGATIVE); Phencyclidine Screen, Urine Neg (NEGATIVE)
[2023-01-25 19:51] VITALS: PULSE 102; RESP 18; O2SAT 95
[2023-01-25] MEDS: TICAGRELOR 90 MG TAB PO SCH (21:48)
[2023-01-25] MEDS ORDERED: ENOXAPARIN SOD 100 MG/1 ML SYRINGE SC SCH (22:00)
[2023-01-25 22:57] VITALS: BP_SYST 146; BP_DIAS 89; BP_DIAS 92; PULSE 84; PULSE 89; PULSE 90; RESP 18; RESP 20; RESP 22; TEMP 98; TEMP 98.6; O2SAT 96
[2023-01-26] VITALS (11 sets, daily range): BP systolic 123–131; BP diastolic 66–83; PULSE 70–96; RESP 16–22; TEMP 97.7–98.2; O2SAT 92–99
[2023-01-26] MEDS ORDERED: ACETAMINOPHEN 325 MG TAB PO PRN ×2 (00:30→12:30)
[2023-01-26] MEDS ORDERED: METF-372 PO (02:24)
[2023-01-26] MEDS ORDERED: SEMA2INJ3 SC (02:24)
[2023-01-26] MEDS: ACCU-CHEK COMFORT CURVE STRIP VI SCH ×4 (06:07→22:53)
[2023-01-26] MEDS: ASCORBIC ACID 500 MG TAB PO SCH ×3 (06:07→22:34)
[2023-01-26] MEDS: ENOXAPARIN SOD 150 MG/1 ML SYRINGE SC SCH ×2 (06:07→17:28)
[2023-01-26] MEDS: InsuLIN REG 1unit/0.01ml Soln (100units/ml) SC SCH ×4 (06:16→22:51)
[2023-01-26 06:52] LABS: Basophils # (auto) 0 10 ^3/uL (0-0.2); Basophils % (auto) 0.2 % (0.0-2.0); Eosinophils # (auto) 0 10 ^3/uL (0-0.8); Eosinophils % (auto) 0.2 % (0.0-7.0); Hemoglobin 15.5 g/dL (13.5-17.5); Lymphocytes # (auto) 1.3 10 ^3/uL (0.4-5.4); Lymphocytes % (auto) 12.1 % (10.0-50.0); Mean Corpuscular Hemoglobin 29.1 pg (28.0-32.0); Mean Corpuscular Hgb Conc. 33.6 g/dL (32.0-36.0); Mean Corpuscular Volume 86.6 fL (80.0-100.0); Monocytes # (auto) 1.4 10 ^3/uL (0-1.3); Monocytes % (auto) 12.7 % (0.0-12.0); Neutrophils # (auto) 8.1 10 ^3/uL (1.6-8.6); Neutrophils % (auto) 74.8 % (37.0-80.0); Red Blood Cells 5.31 10^6/uL (4.5-5.90); Red Cell Distribution Width 15.2 % (11.8-14.3); White Blood Cell 10.8 10^3/uL (4.4-10.8)
[2023-01-26 07:12] LABS: Rapid Influenza A Negative (Negative); Rapid Influenza B Negative (Negative)
[2023-01-26 07:57] LABS: Alanine Aminotransferase 23 U/L (7-40); Albumin 4.4 g/dL (3.2-4.8); Alkaline Phosphatase 42 U/L (46-116); Anion Gap 6 (5-15); Aspartate Aminotransferase 21 U/L (13-40); BUN/Creatinine Ratio 7.4 (10.0-20.0); Blood Urea Nitrogen 9 mg/dL (9-23); Calcium 9.2 mg/dL (8.5-10.1); Carbon Dioxide 28 mmol/L (20-30); Chloride 102 mmol/L (98-107); Glucose 208 mg/dL (74-106); Magnesium 1.8 mg/dL (1.6-2.6); Potassium 4.3 mmol/L (3.5-5.1); Sodium 136 mmol/L (136-145)
[2023-01-26 07:58] LABS: Bilirubin, Total 0.6 mg/dL (0.2-1.0); Total Protein 7.2 g/dL (5.7-8.2)
[2023-01-26] MEDS ORDERED: cefTRIAXone 1GM/50ML D5W 50 ML IV SCH (09:00)
[2023-01-26] MEDS ORDERED: AZITHROMYCIN 500MG/ 250ML 250 ML IV SCH (10:00)
[2023-01-26] MEDS: METOPROLOL SUCCINATE XL 50 MG TAB PO SCH ×3 (10:00→12:16)
[2023-01-26] MEDS ORDERED: TICAGRELOR 90 MG TAB PO SCH (10:00)
[2023-01-26] MEDS ORDERED: ASPirin 81 mg TAB PO SCH (10:00)
[2023-01-26] MEDS ORDERED: EVOL140I2 SC (11:10)
[2023-01-26] MEDS ORDERED: SEMA1INJ2 SC (11:10)
[2023-01-26] MEDS ORDERED: [UNRECOGNIZED DRUG - CODE] PO (11:10)
[2023-01-26] MEDS ORDERED: ZOFR4T (11:11)
[2023-01-26] MEDS ORDERED: METF750T54 PO (11:11)
[2023-01-26] MEDS ORDERED: CETI-120 PO (11:11)
[2023-01-26] MEDS ORDERED: FLUT1SUS NAS (11:11)
[2023-01-26] MEDS ORDERED: OMEP-448 (11:11)
[2023-01-26] MEDS ORDERED: BUPR150T18 PO (11:11)
[2023-01-26] MEDS ORDERED: [UNRECOGNIZED DRUG - CODE] NAS (11:11)
[2023-01-26] MEDS ORDERED: HYDR-3682 PO (11:11)
[2023-01-26] MEDS ORDERED: TEST1KIT IM (11:11)
[2023-01-26] MEDS: ASPirin 81 mg TAB PO SCH (11:47)
[2023-01-26] MEDS: DexAMETHasone 4 MG TAB PO SCH (11:48)
[2023-01-26] MEDS: LISINOPRIL 20 MG TAB PO SCH (11:54)
[2023-01-26] MEDS: ZINC SULFATE 220mg CAP or TAB PO SCH (11:54)
[2023-01-26] MEDS: PANTOPRAZOLE 40 MG TAB PO SCH (11:56)
[2023-01-26] MEDS: TICAGRELOR 90 MG TAB PO SCH ×2 (11:56→22:34)
[2023-01-26] MEDS ORDERED: DULoxetine HCL 30 MG CAP PO ONE (12:00)
[2023-01-26] MEDS ORDERED: HYDROcodone-ACET 5/325MG TAB PO PRN (12:30)
[2023-01-26] MEDS ORDERED: BACLOFEN 10 MG TAB PO PRN (12:30)
[2023-01-26] MEDS ORDERED: CHOLECALCIFEROL (VITD3) 2,000 UNIT CAP/TAB PO ONE (12:30)
[2023-01-26] MEDS: HYDROcodone-ACET 10/325MG TAB PO PRN ×2 (14:33→22:35)
[2023-01-26] MEDS ORDERED: REMDESIVIR 100mg 100 MG in SODIUM CHL 0.9% 230 ML IV SCH (15:00)
[2023-01-26] MEDS ORDERED: INSULIN LANTUS (GLARGINE) 1 /0.01ml (100units/ml) SC ONE (20:45)
[2023-01-26] MEDS: DULoxetine HCL 30 MG CAP PO SCH (22:33)
[2023-01-27] VITALS (7 sets, daily range): BP systolic 128–150; BP diastolic 76–89; PULSE 78–86; RESP 16–18; TEMP 97.3–97.6; O2SAT 96–98
[2023-01-27] MEDS: ASCORBIC ACID 500 MG TAB PO SCH ×2 (06:22→13:41)
[2023-01-27] MEDS: ENOXAPARIN SOD 150 MG/1 ML SYRINGE SC SCH (06:22)
[2023-01-27] MEDS: HYDROcodone-ACET 10/325MG TAB PO PRN ×2 (06:23→13:41)
[2023-01-27] MEDS: ACCU-CHEK COMFORT CURVE STRIP VI SCH (06:23)
[2023-01-27 06:29] LABS: Alanine Aminotransferase 28 U/L (7-40); Albumin 4.4 g/dL (3.2-4.8); Alkaline Phosphatase 43 U/L (46-116); Anion Gap 5 (5-15); Aspartate Aminotransferase 15 U/L (13-40); BUN/Creatinine Ratio 15.8 (10.0-20.0); Blood Urea Nitrogen 15 mg/dL (9-23); Calcium 8.8 mg/dL (8.7-10.4); Carbon Dioxide 28 mmol/L (20-30); Chloride 102 mmol/L (98-107); Glucose 182 mg/dL (74-106); Magnesium 1.8 mg/dL (1.6-2.6); Potassium 4.5 mmol/L (3.5-5.1); Sodium 135 mmol/L (136-145)
[2023-01-27 06:30] LABS: Bilirubin, Total 0.6 mg/dL (0.2-1.0); Total Protein 6.8 g/dL (5.7-8.2)
[2023-01-27] MEDS: InsuLIN REG 1unit/0.01ml Soln (100units/ml) SC SCH (06:32)
[2023-01-27 07:42] LABS: Basophils # (auto) 0 10 ^3/uL (0-0.2); Basophils % (auto) 0.1 % (0.0-2.0); Eosinophils # (auto) 0 10 ^3/uL (0-0.8); Hematocrit 45.2 % (41.0-53.0); Hemoglobin 15.3 g/dL (13.5-17.5); Lymphocytes # (auto) 1.1 10 ^3/uL (0.4-5.4); Lymphocytes % (auto) 8.6 % (10.0-50.0); Mean Corpuscular Hemoglobin 29.1 pg (28.0-32.0); Mean Corpuscular Hgb Conc. 33.8 g/dL (32.0-36.0); Mean Corpuscular Volume 86.2 fL (80.0-100.0); Monocytes % (auto) 7.7 % (0.0-12.0); Neutrophils # (auto) 10.5 10 ^3/uL (1.6-8.6); Neutrophils % (auto) 83.6 % (37.0-80.0); Nucleated Red Blood Cells % 0.2 %; Red Blood Cells 5.24 10^6/uL (4.5-5.90); Red Cell Distribution Width 15.1 % (11.8-14.3); White Blood Cell 12.6 10^3/uL (4.4-10.8)
[2023-01-27] MEDS ORDERED: MAGNESIUM OXIDE 400 MG TAB PO ONE (08:15)
[2023-01-27] MEDS ORDERED: DEXTROSE (50%) 50ML SYRG IV PRN (08:15)
[2023-01-27] MEDS ORDERED: AZITHROMYCIN 250 MG TAB PO SCH (10:00)
[2023-01-27] MEDS ORDERED: CHOLECALCIFEROL (VITD3) 2,000 UNIT CAP/TAB PO SCH (10:00)
[2023-01-27] MEDS ORDERED: INSULIN LANTUS (GLARGINE) 1 /0.01ml (100units/ml) SC SCH (10:00)
[2023-01-27] MEDS: TICAGRELOR 90 MG TAB PO SCH (11:28)
[2023-01-27] MEDS: LISINOPRIL 20 MG TAB PO SCH (11:29)
[2023-01-27] MEDS: PANTOPRAZOLE 40 MG TAB PO SCH (11:29)
[2023-01-27] MEDS: ASPirin 81 mg TAB PO SCH (11:29)
[2023-01-27] MEDS: ZINC SULFATE 220mg CAP or TAB PO SCH (11:29)
[2023-01-27] MEDS: DexAMETHasone 4 MG TAB PO SCH (11:30)
[2023-01-27] MEDS: DULoxetine HCL 30 MG CAP PO SCH (11:30)
[2023-01-27] MEDS ORDERED: ACCU-CHEK COMFORT CURVE STRIP VI SCH (11:30)
[2023-01-27] MEDS ORDERED: InsuLIN REG 1unit/0.01ml Soln (100units/ml) SC SCH ×2 (11:30→22:00)
[2023-01-27] MEDS ORDERED: ASCO500T11 PO (12:08)
[2023-01-27] MEDS ORDERED: ZINC220C10 PO (12:08)
[2023-01-27] MEDS ORDERED: CHOL1CAP47 PO (12:08)
[2023-01-27] MEDS ORDERED: DEXA6TAB PO (12:13)
== END 2023-01-27 16:00 | disposition home or self-care (01) | DRG 137 ==
LOC: ER 03:58 → TELE 11:07 → TELE-WESTW 22:57
PROVIDERS: ADMIT Internal Medicine Geriatric Medicine; ATTEND Student in an Organized Health Care Education/Training Program
PROC: 5A09357 Assistance with Respiratory Ventilation, Less than 24 Consecutive Hours, Continuous Positive Airway Pressure (ICD-10-PCS; principal; 2023-01-25)
PROC: XW033E5 Introduction of Remdesivir Anti-infective into Peripheral Vein, Percutaneous Approach, New Technology Group 5 (ICD-10-PCS; 2023-01-25)
PROC: 5A09357 Assistance with Respiratory Ventilation, Less than 24 Consecutive Hours, Continuous Positive Airway Pressure (ICD-10-PCS; 2023-01-26)
PROC: 5A09357 Assistance with Respiratory Ventilation, Less than 24 Consecutive Hours, Continuous Positive Airway Pressure (ICD-10-PCS; 2023-01-27)
DX: U07.1 COVID-19 (principal); I21.4 Non-ST elevation (NSTEMI) myocardial infarction; J12.82 Pneumonia due to coronavirus disease 2019; E66.01 Morbid (severe) obesity due to excess calories; E11.9 Type 2 diabetes mellitus without complications; E78.5 Hyperlipidemia, unspecified; D58.1 Hereditary elliptocytosis; I10 Essential (primary) hypertension; G47.33 Obstructive sleep apnea (adult) (pediatric); Z68.42 Body mass index [BMI] 45.0-49.9, adult; F43.10 Post-traumatic stress disorder, unspecified; I25.10 Atherosclerotic heart disease of native coronary artery without angina pectoris; E83.42 Hypomagnesemia; I25.5 Ischemic cardiomyopathy; Z79.82 Long term (current) use of aspirin; Z79.899 Other long term (current) drug therapy; Z87.891 Personal history of nicotine dependence; Z98.61 Coronary angioplasty status
CPT/HCPCS: 36415; 71045; 71275; 80053; 80307; 81001; 82962; 83735; 83880; 84443; 84484; 85025; 85610; 85652; 85730; 86141; 87426; 87804; 93005; 93306; 94660; 96372; 99291; G0378; J0696; J1100; J1815

== ENCOUNTER 2023-04-08 16:05 | Inpatient (IN) | payer MEDICAID ==
[~2023-04-08] VITALS: Ht 177.8 cm; Wt 149.5 kg
[~2023-04-08 16:05] MED LIST changes: +ASCO500T11 PO; +BUPR150T18 PO; +CETI-120 PO; +CHOL1CAP47 PO; +DEXA6TAB PO; -DULO20CA PO; +EVOL140I2 SC; +FLUT1SUS NAS; +HYDR-3682 PO; -MET25T PO; +METF750T54 PO; +OMEP-448; +SEMA1INJ2 SC; +TEST1KIT IM; +ZINC220C10 PO; +ZOFR4T; +[UNRECOGNIZED DRUG - CODE] NAS; +[UNRECOGNIZED DRUG - CODE] PO
[2023-04-08] MEDS ORDERED: ASPirin 81 mg TAB ONE (16:23)
[2023-04-08] MEDS ORDERED: ASPirin 81 mg TAB PO ONE (16:30)
[2023-04-08 16:35] LABS: Basophils # (auto) 0.2 10 ^3/uL (0-0.2)
[2023-04-08 16:37] LABS: Basophils % (auto) 1.2 % (0.0-2.0); Eosinophils # (auto) 0 10 ^3/uL (0-0.8); Eosinophils % (auto) 0.3 % (0.0-7.0); Hemoglobin 16.9 g/dL (13.5-17.5); Lymphocytes # (auto) 2.3 10 ^3/uL (0.4-5.4); Lymphocytes % (auto) 16.3 % (10.0-50.0); Mean Corpuscular Hemoglobin 27.1 pg (28.0-32.0); Mean Corpuscular Hgb Conc. 32.5 g/dL (32.0-36.0); Mean Corpuscular Volume 83.3 fL (80.0-100.0); Monocytes # (auto) 1.4 10 ^3/uL (0-1.3); Monocytes % (auto) 10.3 % (0.0-12.0); Neutrophils % (auto) 71.9 % (37.0-80.0); Nucleated Red Blood Cells % 0.1 %; Red Blood Cells 6.24 10^6/uL (4.5-5.90); Red Cell Distribution Width 15.7 % (11.8-14.3)
[2023-04-08] MEDS ORDERED: SODIUM CHLORIDE 0.9% 1,000 ML IVB ONE (16:45)
[2023-04-08] MEDS ORDERED: IPRATROPIUM BROM 0.5 MG/2.5ML INH SOL NEB ONE (16:45)
[2023-04-08] MEDS ORDERED: ALBUTEROL MEDNEB 2.5 mg/3ml NEB NEB ONE (16:45)
[2023-04-08] MEDS ORDERED: DexAMETHasone SOD PHOS 10MG/1ML VIAL INJ IV ONE (16:45)
[2023-04-08 16:51] VITALS: PULSE 111; RESP 24; O2SAT 92
[2023-04-08 16:51] LABS: INR 1.04 (0.9-1.15); Partial Thromboplastin Time 27.9 SEC (24.5-34.5); Prothrombin Time 10.9 sec (9.3-11.8)
[2023-04-08 16:53] LABS: Alanine Aminotransferase 30 U/L (7-40); Albumin 4.7 g/dL (3.2-4.8); Alkaline Phosphatase 62 U/L (46-116); Anion Gap 11 (5-15); Aspartate Aminotransferase 21 U/L (13-40); BUN/Creatinine Ratio 9.6 (10.0-20.0); Bilirubin, Total 0.8 mg/dL (0.2-1.0); Blood Urea Nitrogen 12 mg/dL (9-23); Calcium 9.3 mg/dL (8.7-10.4); Carbon Dioxide 23 mmol/L (20-30); Chloride 98 mmol/L (98-107); Glucose 305 mg/dL (74-106); Magnesium 1.7 mg/dL (1.6-2.6); Potassium 3.8 mmol/L (3.5-5.1); Sodium 132 mmol/L (136-145); Total Protein 7.2 g/dL (5.7-8.2)
[2023-04-08 17:08] LABS: Base Excess -2.9 mmol/L (-2.0-2.0)
[2023-04-08] MEDS ORDERED: CHOLECALCIFEROL (VITD3) 2,000 UNIT CAP/TAB PO ONE (18:30)
[2023-04-08] MEDS ORDERED: levoFLOXacin 500MG 100 ML IV ONE (18:30)
[2023-04-08] MEDS ORDERED: ASCORBIC ACID 500 MG TAB PO ONE (18:30)
[2023-04-08] MEDS ORDERED: ZINC SULFATE 220mg CAP or TAB PO ONE (18:30)
[2023-04-08 20:00] VITALS: PULSE 102; RESP 22; O2SAT 96
[2023-04-08] MEDS ORDERED: IOHEXOL 350 MG/ML 100ML IJ ONE (20:58)
[2023-04-08 21:08] LABS: COVID19 ANTIGEN SOFIA FIA NEGATIVE (NEGATIVE); Rapid Influenza A Negative (Negative); Rapid Influenza B Negative (Negative)
[2023-04-08 21:13] LABS: Amphetamine Screen, Urine Neg (NEGATIVE); Barbiturate Scree,Urine Neg (NEGATIVE); Benzodiazephine Screen, Urine Neg (NEGATIVE); Cocaine Screen, Urine Neg (NEGATIVE); Opiate Scree,Urine Neg (NEGATIVE)
[2023-04-08 21:14] LABS: Cannabinoid Screen, Urine Pos (NEGATIVE); Phencyclidine Screen, Urine Neg (NEGATIVE)
[2023-04-08] MEDS ORDERED: ONDANSETRON HCL 4 MG/2 ML VIAL IV PRN (21:45)
[2023-04-08] MEDS ORDERED: ACETAMINOPHEN 325 MG TAB PO PRN (21:45)
[2023-04-08] MEDS ORDERED: DEXTROSE (50%) 50ML SYRG IV PRN (21:45)
[2023-04-08] MEDS ORDERED: MORPHINE SULFATE INJ 2 MG/ml SYRG IV PRN (21:45)
[2023-04-08] MEDS ORDERED: ENOXAPARIN SOD 100 MG/1 ML SYRINGE SC ONE (21:45)
[2023-04-08] MEDS ORDERED: ALBUTEROL MEDNEB 2.5 mg/3ml NEB NEB PRN (21:45)
[2023-04-08] MEDS ORDERED: FUROSEMIDE 40 MG/4 ML VIAL IV ONE (21:45)
[2023-04-08] MEDS ORDERED: NITROGLYCERIN 0.4 MG SL TAB SL PRN (21:45)
[2023-04-08] MEDS ORDERED: TEMAZEPAM 15 MG CAP PO PRN (21:45)
[2023-04-08 21:58] VITALS: BP 136/76; PULSE 102; RESP 18; TEMP 97.9; O2SAT 96
[2023-04-08] MEDS ORDERED: ATORVASTATIN 20 MG TAB PO SCH (22:00)
[2023-04-08] MEDS: ACCU-CHEK COMFORT CURVE STRIP VI SCH (22:00)
[2023-04-08] MEDS: InsuLIN REG 1unit/0.01ml Soln (100units/ml) SC SCH (23:28)
[2023-04-09] MEDS ORDERED: HYDROcodone-ACET 5/325MG TAB PO ONE (03:15)
[2023-04-09 03:24] LABS: Basophils # (auto) 0.1 10 ^3/uL (0-0.2); Basophils % (auto) 0.6 % (0.0-2.0); Eosinophils # (auto) 0 10 ^3/uL (0-0.8); Monocytes # (auto) 0.4 10 ^3/uL (0-1.3); Neutrophils # (auto) 13.3 10 ^3/uL (1.6-8.6); Nucleated Red Blood Cells % 0.1 %
[2023-04-09 03:27] LABS: Hematocrit 49.7 % (41.0-53.0); Hemoglobin 16.2 g/dL (13.5-17.5); Lymphocytes # (auto) 0.7 10 ^3/uL (0.4-5.4); Lymphocytes % (auto) 4.7 % (10.0-50.0); Mean Corpuscular Hemoglobin 27.3 pg (28.0-32.0); Mean Corpuscular Hgb Conc. 32.7 g/dL (32.0-36.0); Mean Corpuscular Volume 83.7 fL (80.0-100.0); Monocytes % (auto) 2.5 % (0.0-12.0); Neutrophils % (auto) 92.2 % (37.0-80.0); Red Blood Cells 5.94 10^6/uL (4.5-5.90); Red Cell Distribution Width 15.4 % (11.8-14.3); White Blood Cell 14.5 10^3/uL (4.4-10.8)
[2023-04-09 03:37] VITALS: BP 120/58; PULSE 97; O2SAT 98
[2023-04-09 03:45] LABS: Alanine Aminotransferase 27 U/L (7-40); Albumin 4.5 g/dL (3.2-4.8); Alkaline Phosphatase 55 U/L (46-116); Anion Gap 9 (5-15); Aspartate Aminotransferase 20 U/L (13-40); BUN/Creatinine Ratio 7.4 (10.0-20.0); Blood Urea Nitrogen 9 mg/dL (9-23); Calcium 9.1 mg/dL (8.7-10.4); Carbon Dioxide 23 mmol/L (20-30); Chloride 99 mmol/L (98-107); Glucose 349 mg/dL (74-106); Potassium 4.5 mmol/L (3.5-5.1); Sodium 131 mmol/L (136-145)
[2023-04-09 03:46] LABS: Total Protein 7.2 g/dL (5.7-8.2)
[2023-04-09 06:55] LABS: Lactic Acid w/Reflex 2.9 mmol/L (0.4-2.0)
[2023-04-09] MEDS: InsuLIN REG 1unit/0.01ml Soln (100units/ml) SC SCH ×4 (07:00→22:20)
[2023-04-09] MEDS: ACCU-CHEK COMFORT CURVE STRIP VI SCH ×4 (07:29→22:08)
[2023-04-09 07:45] VITALS: PULSE 92; RESP 18; O2SAT 96; O2SAT 97
[2023-04-09 09:57] VITALS: BP 128/79; PULSE 99; O2SAT 96
[2023-04-09] MEDS ORDERED: FUROSEMIDE 40 MG TAB PO SCH (10:00)
[2023-04-09] MEDS ORDERED: ASPirin 81 mg TAB PO SCH (10:00)
[2023-04-09] MEDS: ASPirin 81 mg TAB PO SCH (10:46)
[2023-04-09] MEDS: amLODIPine BESYLATE 5 MG TAB PO SCH (10:46)
[2023-04-09] MEDS: LISINOPRIL 20 MG TAB PO SCH (10:46)
[2023-04-09] MEDS: ENOXAPARIN SOD 150 MG/1 ML SYRINGE SC SCH ×2 (10:46→22:07)
[2023-04-09] MEDS: AZITHROMYCIN 500MG/ 250ML 250 ML IV SCH (13:09)
[2023-04-09] MEDS ORDERED: TICAGRELOR 90 MG TAB PO ONE (13:15)
[2023-04-09] MEDS ORDERED: MORPHINE SULFATE INJ 2 MG/ml SYRG IV PRN (14:15)
[2023-04-09 15:18] VITALS: BP 127/86; PULSE 99; O2SAT 94
[2023-04-09] MEDS: FUROSEMIDE 20 MG/2 ML VIAL IV SCH (17:53)
[2023-04-09 19:25] VITALS: PULSE 97; RESP 19; O2SAT 98
[2023-04-09] MEDS: GABAPENTIN 100 MG CAP PO SCH (22:00)
[2023-04-09] MEDS ORDERED: ATORVASTATIN 20 MG TAB PO SCH (22:00)
[2023-04-09] MEDS: TICAGRELOR 90 MG TAB PO SCH (22:07)
[2023-04-09 22:49] VITALS: BP 120/73; PULSE 76; RESP 20; TEMP 97.9; O2SAT 96
[2023-04-10] VITALS (13 sets, daily range): BP systolic 99–135; BP diastolic 59–82; PULSE 65–103; RESP 14–19; TEMP 96.4–97.8; O2SAT 93–100
[2023-04-10] MEDS ORDERED: LISI40TA16 PO (05:03)
[2023-04-10] MEDS: FUROSEMIDE 20 MG/2 ML VIAL IV SCH ×2 (06:05→16:53)
[2023-04-10] MEDS: ACCU-CHEK COMFORT CURVE STRIP VI SCH ×4 (06:05→21:02)
[2023-04-10] MEDS: InsuLIN REG 1unit/0.01ml Soln (100units/ml) SC SCH ×4 (06:16→21:06)
[2023-04-10 06:29] LABS: Basophils # (auto) 0.1 10 ^3/uL (0-0.2); Basophils % (auto) 0.4 % (0.0-2.0); Eosinophils # (auto) 0.1 10 ^3/uL (0-0.8); Eosinophils % (auto) 0.7 % (0.0-7.0); Hematocrit 46.2 % (41.0-53.0); Hemoglobin 15.1 g/dL (13.5-17.5); Lymphocytes % (auto) 21.3 % (10.0-50.0); Mean Corpuscular Hemoglobin 27.3 pg (28.0-32.0); Mean Corpuscular Hgb Conc. 32.7 g/dL (32.0-36.0); Mean Corpuscular Volume 83.6 fL (80.0-100.0); Monocytes # (auto) 1.3 10 ^3/uL (0-1.3); Monocytes % (auto) 9.2 % (0.0-12.0); Neutrophils # (auto) 9.7 10 ^3/uL (1.6-8.6); Neutrophils % (auto) 68.4 % (37.0-80.0); Nucleated Red Blood Cells % 0.1 %; Red Blood Cells 5.53 10^6/uL (4.5-5.90); Red Cell Distribution Width 15.7 % (11.8-14.3); White Blood Cell 14.2 10^3/uL (4.4-10.8)
[2023-04-10 06:45] LABS: Alanine Aminotransferase 23 U/L (7-40); Albumin 4.2 g/dL (3.2-4.8); Alkaline Phosphatase 41 U/L (46-116); Anion Gap 6 (5-15); Aspartate Aminotransferase 14 U/L (13-40); BUN/Creatinine Ratio 9.1 (10.0-20.0); Blood Urea Nitrogen 11 mg/dL (9-23); CRP High Sensitivity 0.66 mg/dL (<1.0); Calcium 9.3 mg/dL (8.5-10.1); Carbon Dioxide 30 mmol/L (20-30); Chloride 101 mmol/L (98-107); Cholesterol 208 mg/dL (< 200); LDL Cholesterol 155 mg/dL (< 100); Sodium 137 mmol/L (136-145); Triglycerides 136 mg/dL (< 150)
[2023-04-10 06:46] LABS: HDL Cholesterol 50 mg/dL (40-59); Total Protein 6.5 g/dL (5.7-8.2)
[2023-04-10 06:50] LABS: Glucose 206 mg/dL (74-106)
[2023-04-10 07:06] LABS: Magnesium 1.8 mg/dL (1.6-2.6)
[2023-04-10] MEDS: GABAPENTIN 100 MG CAP PO SCH ×2 (09:29→21:07)
[2023-04-10] MEDS: LISINOPRIL 20 MG TAB PO SCH (09:29)
[2023-04-10] MEDS: amLODIPine BESYLATE 5 MG TAB PO SCH (09:29)
[2023-04-10] MEDS: ENOXAPARIN SOD 150 MG/1 ML SYRINGE SC SCH (09:31)
[2023-04-10] MEDS: ASPirin 81 mg TAB PO SCH (09:31)
[2023-04-10] MEDS: AZITHROMYCIN 500MG/ 250ML 250 ML IV SCH (09:31)
[2023-04-10] MEDS: TICAGRELOR 90 MG TAB PO SCH ×2 (09:31→21:01)
[2023-04-10] MEDS ORDERED: IPRATROPIUM BROM 0.5 MG/2.5ML INH SOL NEB SCH (22:00)
[2023-04-11] VITALS (7 sets, daily range): BP systolic 124–129; BP diastolic 70–86; PULSE 89–97; RESP 16–18; TEMP 97.5–98; O2SAT 97–99
[2023-04-11] MEDS: FUROSEMIDE 20 MG/2 ML VIAL IV SCH (06:09)
[2023-04-11] MEDS: ACCU-CHEK COMFORT CURVE STRIP VI SCH ×2 (06:09→11:27)
[2023-04-11] MEDS: InsuLIN REG 1unit/0.01ml Soln (100units/ml) SC SCH ×2 (06:21→11:27)
[2023-04-11 06:38] LABS: Anion Gap 5 (5-15); Carbon Dioxide 28 mmol/L (20-30); Chloride 103 mmol/L (98-107); Potassium 4.1 mmol/L (3.5-5.1); Sodium 136 mmol/L (136-145)
[2023-04-11 06:39] LABS: Calcium 8.8 mg/dL (8.7-10.4)
[2023-04-11 06:43] LABS: Alkaline Phosphatase 44 U/L (46-116)
[2023-04-11 06:44] LABS: BUN/Creatinine Ratio 9.5 (10.0-20.0); Blood Urea Nitrogen 10 mg/dL (9-23); Glucose 209 mg/dL (74-106); Magnesium 1.7 mg/dL (1.6-2.6)
[2023-04-11 06:45] LABS: Aspartate Aminotransferase 15 U/L (13-40)
[2023-04-11 06:46] LABS: Bilirubin, Total 0.7 mg/dL (0.2-1.0); Total Protein 6.3 g/dL (5.7-8.2)
[2023-04-11 06:49] LABS: Alanine Aminotransferase 25 U/L (7-40)
[2023-04-11 07:03] LABS: CRP High Sensitivity 0.37 mg/dL (<1.0)
[2023-04-11 07:07] LABS: Urine Bacteria NONE SEEN /hpf (None Seen); Urine Blood Negative /uL (Negative); Urine Clarity Clear (Clear); Urine Color Yellow (Yellow); Urine Protein, UAD Negative (Negative); Urine Specific Gravity 1.021 (1.001-1.035); Urine Urobilinogen Normal (Negative); Urine WBC 1 /hpf (0 - 3); Urine pH 5.5 (5.0-8.0)
[2023-04-11 07:17] LABS: Basophils # (auto) 0.1 10 ^3/uL (0-0.2); Basophils % (auto) 0.7 % (0.0-2.0); Eosinophils # (auto) 0.1 10 ^3/uL (0-0.8); Eosinophils % (auto) 0.7 % (0.0-7.0); Hematocrit 45.9 % (41.0-53.0); Hemoglobin 14.9 g/dL (13.5-17.5); Lymphocytes # (auto) 2.6 10 ^3/uL (0.4-5.4); Lymphocytes % (auto) 26.3 % (10.0-50.0); Mean Corpuscular Hemoglobin 27.4 pg (28.0-32.0); Mean Corpuscular Hgb Conc. 32.5 g/dL (32.0-36.0); Mean Corpuscular Volume 84.2 fL (80.0-100.0); Monocytes % (auto) 10.1 % (0.0-12.0); Neutrophils # (auto) 6.1 10 ^3/uL (1.6-8.6); Neutrophils % (auto) 62.2 % (37.0-80.0); Nucleated Red Blood Cells % 0.3 %; Red Blood Cells 5.45 10^6/uL (4.5-5.90); Red Cell Distribution Width 15.4 % (11.8-14.3); White Blood Cell 9.8 10^3/uL (4.4-10.8)
[2023-04-11] MEDS: GABAPENTIN 100 MG CAP PO SCH (08:49)
[2023-04-11] MEDS: LISINOPRIL 20 MG TAB PO SCH (08:49)
[2023-04-11] MEDS: amLODIPine BESYLATE 5 MG TAB PO SCH (08:51)
[2023-04-11] MEDS: ASPirin 81 mg TAB PO SCH (08:51)
[2023-04-11] MEDS: TICAGRELOR 90 MG TAB PO SCH (08:51)
[2023-04-11] MEDS ORDERED: ENOXAPARIN SOD 40 MG/0.4 ML SYRINGE SC SCH (10:00)
[2023-04-11] MEDS ORDERED: FUROSEMIDE 40 MG TAB PO SCH (10:00)
== END 2023-04-11 12:54 | disposition left against medical advice (07) | DRG 133 ==
LOC: ER 16:05 → TELE 21:45 → TELE-WESTW 04-09 21:38
PROVIDERS: ADMIT Internal Medicine; ATTEND Internal Medicine
PROC: 5A09357 Assistance with Respiratory Ventilation, Less than 24 Consecutive Hours, Continuous Positive Airway Pressure (ICD-10-PCS; principal; 2023-04-09)
PROC: 5A09357 Assistance with Respiratory Ventilation, Less than 24 Consecutive Hours, Continuous Positive Airway Pressure (ICD-10-PCS; 2023-04-10)
PROC: 5A09357 Assistance with Respiratory Ventilation, Less than 24 Consecutive Hours, Continuous Positive Airway Pressure (ICD-10-PCS; 2023-04-11)
DX: J96.01 Acute respiratory failure with hypoxia (principal); I21.A1 Myocardial infarction type 2; I50.43 Acute on chronic combined systolic (congestive) and diastolic (congestive) heart failure; J12.9 Viral pneumonia, unspecified; I11.0 Hypertensive heart disease with heart failure; E66.01 Morbid (severe) obesity due to excess calories; Z68.42 Body mass index [BMI] 45.0-49.9, adult; I25.10 Atherosclerotic heart disease of native coronary artery without angina pectoris; Z53.29 Procedure and treatment not carried out because of patient's decision for other reasons; G47.33 Obstructive sleep apnea (adult) (pediatric); E78.5 Hyperlipidemia, unspecified; E11.9 Type 2 diabetes mellitus without complications; J45.909 Unspecified asthma, uncomplicated; Z20.822 Contact with and (suspected) exposure to COVID-19; Z79.899 Other long term (current) drug therapy; Z82.49 Family history of ischemic heart disease and other diseases of the circulatory system; Z95.5 Presence of coronary angioplasty implant and graft; Z98.52 Vasectomy status; I25.2 Old myocardial infarction; Z91.199 Patient's noncompliance with other medical treatment and regimen due to unspecified reason; Z79.84 Long term (current) use of oral hypoglycemic drugs; Z79.82 Long term (current) use of aspirin
CPT/HCPCS: 36415; 36600; 71045; 71275; 80053; 80061; 80307; 81001; 82306; 82607; 82805; 82962; 83036; 83605; 83735; 83880; 84443; 84484; 85025; 85610; 85730; 86141; 87040; 87426; 87804; 93005; 93306; 94660; 96365; 96367; 96372; 96375; G0378; J1100; J1815; J1956; J2405

== ENCOUNTER 2023-08-29 15:32 | Inpatient (IN) | payer MEDICAID ==
[~2023-08-29] VITALS: Ht 180.3 cm; Wt 156.2 kg
[~2023-08-29 15:32] MED LIST changes: +LISI40TA16 PO
[2023-08-29 15:45] VITALS: O2SAT 96
[2023-08-29] MEDS: MORPHINE SULFATE INJ 2 MG/ml SYRG IV ONE (16:06)
[2023-08-29] MEDS: FUROSEMIDE 20 MG/2 ML VIAL IV ONE (16:07)
[2023-08-29] MEDS: ONDANSETRON HCL 4 MG/2 ML VIAL IV ONE (16:07)
[2023-08-29 16:12] LABS: Basophils # (auto) 0.1 10 ^3/uL (0-0.2); Basophils % (auto) 0.7 % (0.0-2.0); Eosinophils # (auto) 0.1 10 ^3/uL (0-0.8); Eosinophils % (auto) 1.1 % (0.0-7.0); Hematocrit 49.4 % (41.0-53.0); Hemoglobin 15.9 g/dL (13.5-17.5); Lymphocytes # (auto) 2.2 10 ^3/uL (0.4-5.4); Lymphocytes % (auto) 19.5 % (10.0-50.0); Mean Corpuscular Hemoglobin 25.7 pg (28.0-32.0); Mean Corpuscular Hgb Conc. 32.2 g/dL (32.0-36.0); Monocytes # (auto) 1.1 10 ^3/uL (0-1.3); Monocytes % (auto) 9.4 % (0.0-12.0); Neutrophils # (auto) 7.8 10 ^3/uL (1.6-8.6); Neutrophils % (auto) 69.3 % (37.0-80.0); Red Blood Cells 6.17 10^6/uL (4.5-5.90); White Blood Cell 11.2 10^3/uL (4.4-10.8)
[2023-08-29 16:38] LABS: Alanine Aminotransferase 33 U/L (7-40); Albumin 4.5 g/dL (3.2-4.8); Alkaline Phosphatase 52 U/L (46-116); Anion Gap 10 (5-15); Aspartate Aminotransferase 26 U/L (13-40); BUN/Creatinine Ratio 14.2 (10.0-20.0); Blood Urea Nitrogen 16 mg/dL (9-23); Calcium 9.5 mg/dL (8.5-10.1); Carbon Dioxide 26 mmol/L (20-30); Chloride 100 mmol/L (98-107); Glucose 250 mg/dL (74-106); Sodium 136 mmol/L (136-145)
[2023-08-29 16:39] LABS: Bilirubin, Total 0.7 mg/dL (0.2-1.0); INR 1.04 (0.9-1.15); Partial Thromboplastin Time 28.3 SEC (24.5-34.5); Prothrombin Time 10.9 sec (9.3-11.8); Total Protein 7.1 g/dL (5.7-8.2)
[2023-08-29] MEDS ORDERED: BACLOFEN 10 MG TAB PO PRN (18:00)
[2023-08-29] MEDS ORDERED: ONDANSETRON HCL 4 MG/2 ML VIAL IV PRN (18:00)
[2023-08-29] MEDS: TICAGRELOR 90 MG TAB PO SCH (18:00)
[2023-08-29] MEDS ORDERED: MORPHINE SULFATE 4 MG/ML SYR/VIAL IV PRN (18:00)
[2023-08-29] MEDS ORDERED: NITROGLYCERIN 0.4 MG SL TAB SL PRN ×2 (18:00→21:00)
[2023-08-29] MEDS ORDERED: DEXTROSE (50%) 50ML SYRG IV PRN (18:00)
[2023-08-29] MEDS ORDERED: ACETAMINOPHEN 325 MG TAB PO PRN (18:00)
[2023-08-29] MEDS: IOHEXOL 350 MG/ML 100ML IJ ONE (18:17)
[2023-08-29 19:40] VITALS: O2SAT 94
[2023-08-29 19:46] LABS: Urine Bacteria FEW /hpf (None Seen); Urine Blood Negative /uL (Negative); Urine Clarity Clear (Clear); Urine Color Light-Yellow (Yellow); Urine Mucus FEW (None Seen); Urine Protein, UAD Negative (Negative); Urine Specific Gravity 1.022 (1.001-1.035); Urine Urobilinogen Normal (Negative); Urine WBC <1 /hpf (0 - 3)
[2023-08-29 19:59] LABS: INR 1.06 (0.9-1.15); Prothrombin Time 11.1 sec (9.3-11.8)
[2023-08-29 20:00] LABS: Amphetamine Screen, Urine Neg (NEGATIVE); Barbiturate Scree,Urine Neg (NEGATIVE); Benzodiazephine Screen, Urine Neg (NEGATIVE); Cannabinoid Screen, Urine Pos (NEGATIVE); Cocaine Screen, Urine Neg (NEGATIVE); Opiate Scree,Urine Neg (NEGATIVE); Phencyclidine Screen, Urine Neg (NEGATIVE)
[2023-08-29] MEDS: cefTRIAXone 1GM/50ML D5W 50 ML IV ONE (20:51)
[2023-08-29] MEDS ORDERED: MORPHINE SULFATE INJ 2 MG/ml SYRG IV PRN (21:00)
[2023-08-29] MEDS: AZITHROMYCIN 500MG/ 250ML 250 ML IV ONE (21:02)
[2023-08-29] MEDS: HYDROcodone-ACET 5/325MG TAB PO PRN (21:38)
[2023-08-29 21:50] LABS: COVID19 ANTIGEN SOFIA FIA NEGATIVE (NEGATIVE)
[2023-08-29] MEDS: ATORVASTATIN 20 MG TAB PO SCH (22:03)
[2023-08-29] MEDS: InsuLIN REG 1unit/0.01ml Soln (100units/ml) SC SCH (22:04)
[2023-08-29] MEDS: ACCU-CHEK COMFORT CURVE STRIP VI SCH (22:09)
[2023-08-30] VITALS (17 sets, daily range): BP systolic 113–137; BP diastolic 65–93; PULSE 77–112; RESP 20–22; TEMP 98–98.5; O2SAT 90–98
[2023-08-30] MEDS: DULoxetine HCL 30 MG CAP PO ONE (00:52)
[2023-08-30] MEDS ORDERED: TEMAZEPAM 15 MG CAP PO ONE (01:15)
[2023-08-30] MEDS: FUROSEMIDE 40 MG/4 ML VIAL IV SCH (06:10)
[2023-08-30] MEDS: InsuLIN REG 1unit/0.01ml Soln (100units/ml) SC SCH (06:19)
[2023-08-30 06:47] LABS: Basophils # (auto) 0.1 10 ^3/uL (0-0.2); Basophils % (auto) 0.7 % (0.0-2.0); Eosinophils # (auto) 0.2 10 ^3/uL (0-0.8); Mean Corpuscular Hgb Conc. 32.4 g/dL (32.0-36.0); Red Cell Distribution Width 17.1 % (11.8-14.3)
[2023-08-30 06:52] LABS: Eosinophils % (auto) 1.7 % (0.0-7.0); Hematocrit 44.1 % (41.0-53.0); Hemoglobin 14.3 g/dL (13.5-17.5); Lymphocytes % (auto) 18.7 % (10.0-50.0); Mean Corpuscular Volume 80.1 fL (80.0-100.0); Monocytes # (auto) 0.9 10 ^3/uL (0-1.3); Monocytes % (auto) 8.9 % (0.0-12.0); Neutrophils # (auto) 7.4 10 ^3/uL (1.6-8.6); White Blood Cell 10.5 10^3/uL (4.4-10.8)
[2023-08-30 07:00] LABS: Alanine Aminotransferase 24 U/L (7-40); Alkaline Phosphatase 45 U/L (46-116); Anion Gap 7 (5-15); Aspartate Aminotransferase 17 U/L (13-40); BUN/Creatinine Ratio 13.7 (10.0-20.0); Bilirubin, Total 0.4 mg/dL (0.2-1.0); Blood Urea Nitrogen 14 mg/dL (9-23); Calcium 8.9 mg/dL (8.5-10.1); Carbon Dioxide 26 mmol/L (20-30); Chloride 102 mmol/L (98-107); Cholesterol 188 mg/dL (< 200); Glucose 241 mg/dL (74-106); HDL Cholesterol 44 mg/dL (40-59); LDL Cholesterol 123 mg/dL (< 100); Potassium 3.6 mmol/L (3.5-5.1); Sodium 135 mmol/L (136-145); Total Protein 6.4 g/dL (5.7-8.2); Triglycerides 212 mg/dL (< 150)
[2023-08-30] MEDS ORDERED: TIRZ5INJ SC (07:25)
[2023-08-30] MEDS: FAMOTIDINE 20 MG TAB PO SCH (09:23)
[2023-08-30] MEDS: LISINOPRIL 20 MG TAB PO SCH (09:23)
[2023-08-30] MEDS: cefTRIAXone 1GM/50ML D5W 50 ML IV SCH (09:23)
[2023-08-30] MEDS: DOCUSATE SOD 100 MG CAP PO SCH (09:24)
[2023-08-30] MEDS: ASPirin-EC 81 mg tab PO SCH (09:24)
[2023-08-30] MEDS: LORATADINE 10 MG TAB PO SCH (09:24)
[2023-08-30] MEDS: BUPROPION HCL 150 MG PO SCH (09:30)
[2023-08-30] MEDS ORDERED: ASPirin 81 mg TAB PO SCH (10:00)
[2023-08-30] MEDS ORDERED: PATIENTS OWN MEDICATION (Lisinopril 1 TAB) PO SCH (10:00)
[2023-08-30] MEDS: AZITHROMYCIN 500MG/ 250ML 250 ML IV SCH (10:46)
[2023-08-31] VITALS (9 sets, daily range): BP systolic 114–147; BP diastolic 61–97; PULSE 76–85; RESP 18; TEMP 97.9–98; O2SAT 94–99
[2023-08-31 07:08] LABS: Anion Gap 7 (5-15); Carbon Dioxide 26 mmol/L (20-30); Chloride 102 mmol/L (98-107); Potassium 3.9 mmol/L (3.5-5.1); Sodium 135 mmol/L (136-145)
[2023-08-31 07:09] LABS: Calcium 9.5 mg/dL (8.7-10.4)
[2023-08-31 07:14] LABS: BUN/Creatinine Ratio 10.7 (10.0-20.0); Blood Urea Nitrogen 11 mg/dL (9-23); Glucose 263 mg/dL (74-106)
[2023-08-31 07:15] LABS: Magnesium 1.8 mg/dL (1.6-2.6)
[2023-08-31] MEDS: AZITHROMYCIN 250 MG TAB PO SCH (08:42)
[2023-08-31] MEDS ORDERED: FURO1TAB31 PO (09:09)
== END 2023-08-31 11:30 | disposition home or self-care (01) | DRG 190 ==
LOC: ER 15:32 → TELE 20:57 → TELE-EAST 23:17
PROVIDERS: ADMIT Nurse Practitioner; ATTEND Internal Medicine Geriatric Medicine
PROC: 5A09357 Assistance with Respiratory Ventilation, Less than 24 Consecutive Hours, Continuous Positive Airway Pressure (ICD-10-PCS; principal; 2023-08-30)
PROC: 5A09357 Assistance with Respiratory Ventilation, Less than 24 Consecutive Hours, Continuous Positive Airway Pressure (ICD-10-PCS; 2023-08-31)
DX: I21.4 Non-ST elevation (NSTEMI) myocardial infarction (principal); J96.21 Acute and chronic respiratory failure with hypoxia; I50.43 Acute on chronic combined systolic (congestive) and diastolic (congestive) heart failure; D72.829 Elevated white blood cell count, unspecified; E11.65 Type 2 diabetes mellitus with hyperglycemia; E78.5 Hyperlipidemia, unspecified; E66.01 Morbid (severe) obesity due to excess calories; I11.0 Hypertensive heart disease with heart failure; Z20.822 Contact with and (suspected) exposure to COVID-19; G47.33 Obstructive sleep apnea (adult) (pediatric); Z79.82 Long term (current) use of aspirin; Z79.899 Other long term (current) drug therapy; Z80.43 Family history of malignant neoplasm of testis; Z82.49 Family history of ischemic heart disease and other diseases of the circulatory system; Z95.5 Presence of coronary angioplasty implant and graft; Z86.16 Personal history of COVID-19; Z68.42 Body mass index [BMI] 45.0-49.9, adult
CPT/HCPCS: 36415; 36600; 71045; 71275; 80048; 80053; 80061; 80307; 81001; 82805; 82962; 83735; 83880; 84484; 85025; 85379; 85610; 85730; 87426; 93005; 93306; 94660; G0378; J1815; J2405